=== PATIENT | male | born 1935 | race Caucasian/White ===

== ENCOUNTER 2017-01-20 05:52 | Emergency (ER) | payer OTHER ==
[~2017-01-20] VITALS: Ht 177.8 cm; Wt 82.3 kg
[2017-01-20 05:58] VITALS: TEMP 36.7; Ht 177.8 cm; Wt 82.3 kg
[2017-01-20] MEDS ORDERED: ALBUT/IPRATROP 3MG/0.5MG NEB 3 ML VIAL INH STA (06:08)
[2017-01-20] MEDS ORDERED: ASPI81TA28 PO (06:13)
[2017-01-20] MEDS ORDERED: SIMV40TA2 PO (06:14)
[2017-01-20] MEDS ORDERED: MONT1TAB5 PO (06:15)
[2017-01-20] MEDS ORDERED: TAMS0.4C38 PO (06:16)
[2017-01-20] MEDS ORDERED: FINA5TAB4 PO (06:16)
[2017-01-20] MEDS ORDERED: MULT-506 PO (06:17)
[2017-01-20] MEDS ORDERED: CYAN1LOZ PO (06:18)
[2017-01-20] MEDS ORDERED: FLUT0.15 NAE (06:19)
[2017-01-20] MEDS ORDERED: ASTN (06:20)
--- NOTE | 2017-01-20 06:21 | EMERGENCY ROOM VISIT NOTE ---
History Report prepared by Rohit: María Varela Under the Supervision of: Dr. Shelia Cordova M.D. First contact with patient: 06:04 Chief Complaint: CONGESTION Stated Complaint: UPPER RESPIRATORY,CONGESTION,COUGH History of Present Illness The patient is a 81 year old male who presents to the Emergency Room with complaints of persistent cough starting 1 week ago. His was recently sick with a virus 2 weeks ago. One week ago he began having similar symptoms. He reports cough, congestion, and drainage down the back of his throat. He is coughing and draining down the back of his throat every 5-10 minutes. He tried taking the same medications as his , but experienced no significant relief. Three days ago, he went to see a PA who thought he might be having allergies. He was given a steroid shot, but states that his symptoms have not improved at all. He reports some chest discomfort from coughing and possible fever. Source of History: patient Onset: 1 week ago Position: other (global) Quality: other (cough) Timing: other (persistent) Associated Symptoms: + chest pain, + fevers Note: Pt reports congestion, drainage down the back of his throat. Review of Systems See HPI for pertinent positives & negatives. A total of 10 systems reviewed and were otherwise negative. Past Medical & Surgical Medical Problems: (1) Bronchitis Surgical Problems: (1) Status post left knee replacement Family History Diabetes mellitus Heart disease Hypertension Kidney disease Kidney stones Social History Smoking Status: Former Smoker Marital Status: Housing Status: lives with significant other Occupation Status: retired Current/Historical Medications Scheduled Albuterol Sulfate (Proventil Hfa), 2 PUFFS INH Q4H Aspirin (Aspirin Ec), 81 MG PO DAILY Azithromycin (Azithromycin), 250 MG PO DAILY Cyanocobalamin (Vitamin B 12), 100 MCG PO DAILY Finasteride (Proscar), 5 MG PO DAILY Montelukast Sodium (Montelukast Sodium), 10 MG PO HS Multivitamin (Multivitamin), 1 TAB PO DAILY Prednisone (Prednisone), 10 MG PO DIRECTED Simvastatin (Zocor), 40 MG PO QPM Tamsulosin Hcl (Flomax), 0.4 MG PO HS Scheduled PRN Azelastine Hcl (Astelin Nasal Harris), 1-2 SPRAYS NA DIRECTED PRN for allergies Fluticasone Propionate (Nasal) (Flonase Allergy Relief), 1 SPRAY NATASHA DIRECTED PRN for allergies Allergies Coded Allergies: No Known Allergies (Unverified , 01/20/17) Physical Exam Vital Signs Date Time Temp Pulse Resp B/P Pulse Ox O2 Delivery O2 Flow Rate FiO2 01/20/17 06:06 95 Room Air 01/20/17 05:58 36.7 75 18 123/83 95 Room Air Physical Exam Vital signs reviewed. General: Well-appearing 81 year old male, in no significant distress. HEENT: No scleral icterus, PERRLA, neck supple. Atraumatic. Cardiovascular: Regular rate and rhythm, no extra sounds. Pulmonary: Rhonchus breath sounds bilaterally, normal work of breathing. Abdomen: Soft, nontender, nondistended, positive bowel sounds. Musculoskeletal: Atraumatic, no peripheral edema. Neurologic: Patient awake alert and oriented x 3, full strength in all 4 extremities. Cranial nerves 2 through 12 grossly intact. Skin: Warm, dry, no rash Medical Decision & Procedures ER Provider Diagnostic Interpretation: X-ray results as stated below per interpretation by me: Chest X-ray: Overlying soft tissue to the left lung field otherwise some prominent lung interstitial tissue. No focal lung consolidation or failure. Medications Administered Medications (Trade) Dose Ordered Sig/Sathya Route Start Time Stop Time Status Last Admin Dose Admin Albuterol/ Ipratropium (Duoneb) 3 ml NOW STAT INH 01/20/17 06:08 01/20/17 06:10 DC 01/20/17 06:13 3 ML Prednisone (PredniSONE TAB) 60 mg NOW STAT PO 01/20/17 06:08 01/20/17 06:10 DC 01/20/17 06:13 60 MG ED Course 0605: Past medical records reviewed. The patient was evaluated in room A2. A complete history and physical examination was performed. 0608: Prednisone 60 mg PO, Duoneb 3 ml INH. 0634: Upon reevaluation, the patient appeared to have improvement of his symptoms. I discussed findings with him. He verbalized agreement of the treatment plan. He was discharged home. Medical Decision Differential diagnosis: Etiologies such as infections, reactive airway disease, pneumonia, pneumothorax , COPD, CHF, cardiac ischemia, pulmonary embolism, musculoskeletal, gastrointestinal, as well as others were entertained. This patient was evaluated and appeared to be in no distress. Physical examination reveals rhonchorous breath sounds bilaterally with some wheezing. Patient was given DuoNeb treatment with significant relief of his symptoms. Chest x-ray was obtained and reveals some prominent interstitial tissue without evidence of focal lung consolidation. He was given prednisone 60 mg orally and 500 mg of azithromycin. The patient was discharged with prescriptions for azithromycin 250 mg daily for 4 more days, prednisone taper and albuterol inhaler. He was advised to follow-up with his physician upon return home and to return to the ER for worsening of symptoms or any medical concerns. Impression Primary Impression: Bronchitis with asthma, acute Scribe Attestation The scribe's documentation has been prepared under my direction and personally reviewed by me in its entirety. I confirm that the note above accurately reflects all work, treatment, procedures, and medical decision making performed by me. Departure Information Dispostion Home / Self-Care Prescriptions Azithromycin (Azithromycin) 250 Mg Tab 250 MG PO DAILY for 4 Days, #4 TABS Prov: Shelia Cordova M.D. 01/20/17 Prednisone (Prednisone) 10 Mg Tab 10 MG PO DIRECTED, #31 TAB 40 mg for 4 days, 30 mg for 3 days, 20 mg for 2 days, 10 mg for 2 days Prov: Shelia Cordova M.D. 01/20/17 Albuterol Sulfate (Proventil Hfa) 108 Mcg/Act Aer 2 PUFFS INH Q4H for 5 Days, #1 INHALER Prov: Shelia Cordova M.D. 01/20/17 Referrals No Doctor, Assigned (PCP) Forms HOME CARE DOCUMENTATION FORM, IMPORTANT VISIT INFORMATION Patient Instructions My [facility] Additional Instructions Diagnosis: Bronchitis with asthma Prednisone 40 mg daily for 4 more days, 30 mg daily for 3 days, 20 mg daily for 2 days, 10 mg daily for 2 days. Start tomorrow. Albuterol 2 puffs every 4 hours as needed for cough or wheezing. Azithromycin 250 mg daily for 4 more days, start tomorrow. Tylenol 650 mg every 6 hours as needed for pain or fever. Return to the ER for worsening of symptoms or any medical concerns.
[2017-01-20] MEDS ORDERED: PRED10TA PO (06:29)
[2017-01-20] MEDS ORDERED: AZIT-57 PO (06:29)
[2017-01-20] MEDS ORDERED: ALBUAER INH (06:29)
[2017-01-20 06:40] VITALS: BP 124/74; PULSE 73; O2SAT 97
[2017-01-20] MEDS ORDERED: AZITHROMYCIN 250 MG TAB PO ONE (06:45)
--- NOTE | 2017-01-20 07:07 | DIAGNOSTIC IMAGING REPORT ---
CHEST ONE VIEW PORTABLE CLINICAL HISTORY: Cough. Congestion. COMPARISON STUDY: No previous studies for comparison. FINDINGS: Lung volumes are normal. There is no consolidation or evidence of pulmonary edema. Cardiomediastinal silhouette is normal. The patient is rotated. IMPRESSION: No acute cardiopulmonary findings. Electronically signed by: Bakari Marie M.D. 01/20/2017 7:06 AM Dictated Date/Time: 01/20/2017 7:05 AM
== END 2017-01-20 06:40 | disposition home or self-care (01) ==
LOC: C.EDB 05:55 → C.EDA 06:40
DX: J45.909 Unspecified asthma, uncomplicated (principal); Z87.891 Personal history of nicotine dependence; Z96.652 Presence of left artificial knee joint; Z83.3 Family history of diabetes mellitus; Z82.49 Family history of ischemic heart disease and other diseases of the circulatory system; Z84.1 Family history of disorders of kidney and ureter; Z79.52 Long term (current) use of systemic steroids; Z79.82 Long term (current) use of aspirin